=== PATIENT | male | born 1995 | race African-American/Black ===

== ENCOUNTER 2021-06-30 16:37 | Emergency (ER) | payer OTHER ==
[2021-06-30 17:51] LABS: Absolute Lymphocytes (CBC) 2.2 K/uL (0.7-4.9); Basophils % 0.8 % (0-1.3); Hematocrit 45.9 % (39.6-49.0); Lymphocytes % 38.5 % (15.3-44.8); MPV 7.7 fL (7.6-11.3); RBC Red Blood Cell Count 5.22 M/uL (4.33-5.43)
[2021-06-30 17:53] LABS: Protime INR 1.15
[2021-06-30 17:54] LABS: Urine Blood Negative (Negative); Urine Glucose Negative (Negative); Urine Protein 1+ (Negative); Urine Specific Gravity 1.025 (1.005-1.030)
[2021-06-30 18:05] LABS: Barbiturates NEGATIVE (NEGATIVE); Benzodiazepines NEGATIVE (NEGATIVE); Cocaine NEGATIVE (NEGATIVE); METHAMPHETAM NEGATIVE (NEGATIVE); Methadone NEGATIVE (NEGATIVE); Opiates NEGATIVE (NEGATIVE); Phencyclidine NEGATIVE (NEGATIVE); THC Cannibis POSITIVE (NEGATIVE)
[2021-06-30 18:21] LABS: ALT/SGPT 27 U/L (12-78); AST/SGOT 24 U/L (15-37); Albumin 4.8 g/dL (3.4-5.0); Alkaline Phosphatase 66 U/L (45-117); BUN Blood Urea Nitrogen 16 mg/dL (7-18); Bicarbonate 30 mmol/L (21-32); Bilirubin Direct 0.2 mg/dL (0-0.2); Bilirubin Total 0.7 mg/dL (0.2-1.0); Glucose Level 84 mg/dL (74-106); Potassium 3.7 mmol/L (3.5-5.1); Protein, Total 8.5 g/dL (6.4-8.2); Sodium Level 141 mmol/L (136-145)
--- NOTE | 2021-06-30 19:42 | EDPHYS ---
Physician Documentation [facility] Name: Campbell Galvin Age: 25 yrs Sex: Male : 1995 Arrival Date: 06/30/2021 Time: 16:38 Bed 20 Private MD: ED Physician Reynaldo Wilson HPI: 06/30 17:20 This 25 yrs old Black Male presents to ER via EMS with complaints of hallucinations. jmm 17:20 Onset: The symptoms/episode began/occurred today. Associated signs and symptoms: jmm Pertinent negatives: homicidal ideation, shortness of breath, suicide ideation. Patient states he suffers from PTSD and anxiety. Patient states crew was saying "weird stuff". Sent for evaluation due to concerns for paranoid deliusions. . Historical: - Allergies: 16:59 No Known Allergies; sl2 - Immunization history:: Adult Immunizations up to date, Client reports receiving the Holden \\T\\ Holden single-dose vaccine. Date received February 15, 2021. - Social history:: Smoking status: Patient reports the use of cigarette tobacco products, denies chronic smoking, but will smoke occasionally. ROS: 17:20 Constitutional: Negative for fever, chills, and weight loss, Cardiovascular: Negative jmm for chest pain, palpitations, and edema, Respiratory: Negative for shortness of breath, cough, wheezing, and pleuritic chest pain. 17:20 Psych: Positive for anxiety. 17:20 All other systems are negative. Exam: 07/01 15:04 Constitutional: This is a well developed, well nourished patient who is awake, alert, jmm and in no acute distress. Head/Face: atraumatic. Eyes: EOMI, no conjunctival erythema appreciated ENT: Moist Mucus Membranes Neck: Trachea midline, Supple Chest/axilla: Normal chest wall appearance and motion. Cardiovascular: Regular rate and rhythm. No edema appreciated Respiratory: Normal respirations, no respiratory distress appreciated Abdomen/GI: Non distended, soft Back: Normal ROM Skin: General appearance color normal MS/ Extremity: Moves all extremities, no obvious deformities appreciated, no edema noted to the lower extremities Neuro: Orientation: is normal, Mentation: is normal, Memory: is normal. Psych: Behavior/mood is cooperative, anxious. Vital Signs: 06/30 16:53 BP 149 / 92; Pulse 63; Resp 18; Temp 98.9; Pulse Ox 100% ; Weight 59.87 kg; Height 5 sl2 ft. 7 in. (170.18 cm); 17:05 BP 149 / 92; Pulse 63; Resp 18; Temp 98.9; Pulse Ox 100% ; sl2 18:00 BP 142 / 88; Pulse 89; Resp 18; Temp 98.6; Pulse Ox 99% on R/A; sl2 19:00 BP 138 / 82; Pulse 88; Resp 18; Temp 98.4; Pulse Ox 100% on R/A; sl2 19:45 BP 128 / 78; Pulse 84; Resp 17; Temp 98.2; Pulse Ox 100% on R/A; mr2 16:53 Body Mass Index 20.67 (59.87 kg, 170.18 cm) sl2 MDM: 16:41 Patient medically screened. jeronimo 19:40 Data reviewed: vital signs, nurses notes. Counseling: I had a detailed discussion with [facility] the patient and/or guardian regarding: the historical points, exam findings, and any diagnostic results supporting the discharge/admit diagnosis, lab results, the need for outpatient follow up, to return to the emergency department if symptoms worsen or persist or if there are any questions or concerns that arise at home. 07/01 15:06 ED course: [facility] psychiatric response evaluated the patient. Patient exhibited no jm SI or HI or signs of acutely threatening psychosis. Patient will follow up with his psychiatrist in [place].. 06/30 17:00 Order name: Acetaminophen; Complete Time: 18:24 [facility] 06/30 17:00 Order name: Basic Metabolic Panel; Complete Time: 18:24 [facility] 06/30 17:00 Order name: CBC with Diff; Complete Time: 17:57 [facility] 06/30 17:00 Order name: ETOH Level; Complete Time: 18:24 [facility] 06/30 17:00 Order name: Hepatic Function; Complete Time: 18:24 [facility] 06/30 17:00 Order name: PT-INR; Complete Time: 17:57 [facility] 06/30 17:00 Order name: Ptt, Activated; Complete Time: 17:57 [facility] 06/30 17:00 Order name: Salicylate; Complete Time: 18:24 [facility] 06/30 17:00 Order name: Urine Drug Screen; Complete Time: 18:07 [facility] 06/30 17:00 Order name: EKG - Nurse/Tech [facility] 06/30 17:00 Order name: IV Saline Lock; Complete Time: 17:36 [facility] 06/30 17:00 Order name: Labs collected and sent; Complete Time: 17:36 [facility] 06/30 17:53 Order name: Urine Dipstick-Ancillary; Complete Time: 17:57 [facility] 06/30 17:00 Order name: Suicide Screening ([place]) [facility] 06/30 17:00 Order name: Urine Dipstick-Ancillary (obtain specimen); Complete Time: 17:52 [facility] Administered Medications: No medications were administered Disposition: 10:42 Co-signature as Attending Physician, Reynaldo Wilson MD I agree with the assessment and jeronimo plan of care. Disposition Summary: 06/30/21 19:41 Discharge Ordered Location: Home [facility] Condition: Stable jmm Diagnosis - Anxiety disorder, unspecified jmm Followup: [facility] - With: Alden Stevens MD - When: 2 - 3 days - Reason: Recheck today's complaints, Continuance of care, Re-evaluation by your physician Discharge Instructions: - Discharge Summary Sheet jmm - Generalized Anxiety Disorder, Adult jm Forms: - Medication Reconciliation Form [facility] - Thank You Letter [facility] - Antibiotic Education [facility] - Prescription Opioid Use [facility] Signatures: Dispatcher [employer] Reynaldo Liang MD MD cha Mickail, Joel, PA PA jmm Landell, Sophia, RN RN sl2
--- NOTE | 2021-06-30 19:42 | ER ---
Nurse's Notes [facility] Name: Campbell Galvin Age: 25 yrs Sex: Male : 1995 Arrival Date: 06/30/2021 Time: 16:38 Bed 20 Private MD: Diagnosis: Anxiety disorder, unspecified Presentation: 06/30 16:53 Chief complaint: EMS states: [facility] - Patient bought in for Medical sl2 clearance - Report received that patient is an employee on a cargo ship and has been exhibiting behaviors that depicts hallucinations and paranoia. Patient was sent to ED for medical clearance so that he can take a flight back home. Coronavirus screen: Vaccine status: Patient reports receiving the 1st dose of the Covid vaccine. Date February 15, 2021 Holden and Holden Covid Vaccine. Ebola Screen: Patient negative for fever greater than or equal to 101.5 degrees Fahrenheit, and additional compatible Ebola Virus Disease symptoms. Initial Sepsis Screen: Does the patient meet any 2 criteria? No. Patient's initial sepsis screen is negative. Risk Assessment: Do you want to hurt yourself or someone else? Patient reports no desire to harm self or others. Onset of symptoms is unknown. 16:53 Method Of Arrival: EMS: [facility] 2 16:53 Acuity: LEIGH 2 sl2 19:00 Initial Sepsis Screen: Does the patient have a suspected source of infection? No. mr2 Patient's initial sepsis screen is negative. Triage Assessment: 16:59 General: Appears in no apparent distress. slender, Behavior is cooperative, agitated, sl2 anxious. Pain: Denies pain. EENT: No deficits noted. Neuro: No deficits noted. Cardiovascular: No deficits noted. Respiratory: No deficits noted. GI: No deficits noted. : No deficits noted. Derm: No deficits noted. Musculoskeletal: No deficits noted. Historical: - Allergies: 16:59 No Known Allergies; sl2 - Immunization history:: Adult Immunizations up to date, Client reports receiving the Holden \\T\\ Holden single-dose vaccine. Date received February 15, 2021. - Social history:: Smoking status: Patient reports the use of cigarette tobacco products, denies chronic smoking, but will smoke occasionally. Screenin:10 Abuse screen: Denies threats or abuse. Nutritional screening: No deficits noted. sl2 Tuberculosis screening: No symptoms or risk factors identified. Fall Risk None identified. Assessment: 17:10 General: Appears in no apparent distress. Behavior is cooperative, agitated, anxious, sl2 listless. Pain: Denies pain. Neuro: No deficits noted. Cardiovascular: No deficits noted. Respiratory: No deficits noted. GI: No deficits noted. : No deficits noted. EENT: No deficits noted. Derm: No deficits noted. Musculoskeletal: No deficits noted. 20:09 Reassessment: spoke with Captain Saulo Landeros, will arrange transportation for pt to be em sent back to [facility]. Psych: 19:28 [place] Suicide Severity Screening: In the past month, have you wished you were sl2 or wished you could go to sleep and not wake up? Patient responds "No." "In the past month, have you actually had any thoughts of killing yourself?" Patient responds "no." "In your lifetime, have you ever done anything, started to do anything, or prepared to do anything to end your life?" Patient responds "no.". Subjective: Patient's mood is elevated, irritable, Delusions are denied, Hallucinations are denied Having thoughts of. Objective: Patient is cooperative, aggressive, Speech is loud, Affect is appropriate, Patient has mutilated themselves by denies - none noted.. not applicable. Interventions: Removed personal items and placed in bag. Safety Checks: Personal items have been removed. Door is open. No visitors are present at this time. Pt denies substance abuse. 20:10 Commitment: Patient will be a voluntary commitment. mr2 Vital Signs: 16:53 BP 149 / 92; Pulse 63; Resp 18; Temp 98.9; Pulse Ox 100% ; Weight 59.87 kg; Height 5 sl2 ft. 7 in. (170.18 cm); 17:05 BP 149 / 92; Pulse 63; Resp 18; Temp 98.9; Pulse Ox 100% ; sl2 18:00 BP 142 / 88; Pulse 89; Resp 18; Temp 98.6; Pulse Ox 99% on R/A; sl2 19:00 BP 138 / 82; Pulse 88; Resp 18; Temp 98.4; Pulse Ox 100% on R/A; sl2 19:45 BP 128 / 78; Pulse 84; Resp 17; Temp 98.2; Pulse Ox 100% on R/A; mr2 16:53 Body Mass Index 20.67 (59.87 kg, 170.18 cm) 2 ED Course: 16:38 Patient arrived in ED. 16:39 Darwin Landaverde PA is PHCP. [facility] 16:39 Reynaldo Wilson MD is Attending Physician. [facility] 16:53 Amisha Romero, RN is Primary Nurse. sl2 16:59 Triage completed. sl2 17:05 Arm band placed on right wrist. sl2 17:10 Patient has correct armband on for positive identification. sl2 17:10 Patient did not have IV access during this emergency room visit. sl2 17:30 Initial lab(s) drawn, by nc, sent to lab. Inserted saline lock: 20 gauge in left dh3 antecubital area, using aseptic technique. Blood collected. 19:08 IV discontinued, intact, bleeding controlled, No redness/swelling at site. Pressure dh3 dressing applied. 19:24 No provider procedures requiring assistance completed. 2 19:40 Alden Stevens MD is Referral Physician. [facility] Administered Medications: No medications were administered Outcome: 19:41 Discharge ordered by . [facility] 19:55 Discharged to home ambulatory. mr2 19:55 Condition: stable 19:55 Discharge instructions given to patient, Instructed on follow up and referral plans. 20:25 Patient left the ED. mr2 Signatures: Darwin Landaverde PA PA jmm Munoz, Edgar, Hansa Walsh RN, RN RN [place] [id number] Mack Aguilar RN RN mr2 Amisha Romero, GROVER RN 2
[2021-06-30 20:37] VITALS: O2SAT 100
[2021-06-30 20:39] VITALS: BP 128/78; TEMP 98.2
== END 2021-06-30 20:25 | disposition home or self-care (01) ==
LOC: ER 16:37
DX: F41.9 Anxiety disorder, unspecified (principal); F43.10 Post-traumatic stress disorder, unspecified; F17.210 Nicotine dependence, cigarettes, uncomplicated
CPT/HCPCS: 36415; 80048; 80076; 80307; 80320; 80329; 81003; 85025; 85610; 85730; 99284